=== PATIENT | female | born 1995 | race Caucasian/White ===

== ENCOUNTER 2016-05-14 11:08 | Emergency (ER) | payer MEDICAID ==
[~2016-05-14] VITALS: Ht 160 cm; Wt 69.0 kg
[2016-05-14 11:10] VITALS: Ht 160 cm; Wt 69.0 kg
[2016-05-14] MEDS ORDERED: SOD CHLORIDE 0.9% 1,000 ML IV STA (11:33)
[2016-05-14] MEDS ORDERED: ONDANSETRON 4 MG INJ IV STA ×2 (11:33→12:41)
[2016-05-14] MEDS ORDERED: LIDOCAINE/MYLANTA 40 ML BTL PO STA (11:33)
[2016-05-14] MEDS ORDERED: FAMOTIDINE 20 MG TAB PO STA (11:33)
--- NOTE | 2016-05-14 12:04 | ERD ---
ER Documentation Chief Complaint Date/Time DATE: 05/14/16 TIME: 12:01 Chief Complaint Complains of epigastric pain and vomiting x 3 days HPI Patient is a 21-year-old female here with mother who presents to the ED with vomiting 2 days. She states that she had [employer] on and innout on Sunday and developed symptoms afterwards. She complains of non-bloody slightly green and yellow emesis. She states that her pain is in the epigastric and right upper quadrant region. She states that she has been able to tolerate soup and potatoes however she has had multiple episodes of vomiting in the last 2 days. She also has had episodes of watery diarrhea x 2 days, non bloody, non black, non tarry. Denies fever or chills. Denies headache, dizziness, neck pain or stiffness. Denies leg pain or swelling. Denies cough, shortness of breath or difficulty breathing. Denies pelvic pain. Denies dysuria, urgency, frequency or hematuria. ROS All systems reviewed and are negative except as per history of present illness. Medications Home Meds Active Scripts Electrolyte,Oral (Pedialyte) 1,000 Ml Solution, 100 ML PO Q6 Y for VOMITTING for 14 Days, ML Prov:RUPERT LEWIS PA-C 05/14/16 Ondansetron Hcl* (Zofran*) 4 Mg Tablet, 4 MG PO Q6H for NAUSEA AND/OR VOMITING, #30 TAB Prov:RUPERT LEWIS PA-C 05/14/16 Allergies Allergies: Coded Allergies: No Known Allergy (Unverified , 05/14/16) PMhx/Soc Medical and Surgical Hx: pt denies Medical Hx, pt denies Surgical Hx History of Surgery: No Anesthesia Reaction: No Hx Neurological Disorder: No Hx Respiratory Disorders: No Hx Cardiac Disorders: No Hx Psychiatric Problems: No Hx Miscellaneous Medical Probl: No Hx Alcohol Use: No Hx Substance Use: No Hx Tobacco Use: No Smoking Status: Never smoker Physical Exam Vitals Vital Signs Date Time Temp Pulse Resp B/P Pulse Ox O2 Delivery O2 Flow Rate FiO2 05/14/16 11:10 98.9 111 20 121/70 98 Physical Exam GENERAL: Well-developed, well-nourished female. Appears in no acute distress. HEAD: Normocephalic, atraumatic. EYES: Pupils are equally reactive bilaterally. EOMs grossly intact. No conjunctival erythema. ENT: Moist mucous membranes. No uvula deviation. No kissing tonsils. No exudates. NECK: Supple. No lymphadenopathy or thyromegaly. No meningismus. negative kernig. negative brudinski. LUNG: Clear to auscultation bilaterally. No rhonchi, wheezing, rales or coarse breath sounds. HEART: Regular rate and rhythm. No murmurs, rubs or gallops. ABDOMEN: No scars, ecchymosis or rashes noted. Soft, nontender, and nondistended. Positive bowel sounds in all four quadrants. No rebound tenderness , no guarding. (-) McBurneys point tenderness. No CVA tenderness. Tenderness in the right upper quadrant and epigastric. BACK: No midline tenderness. Extremities: Equal pulses bilaterally. No peripheral clubbing, cyanosis or edema. No unilateral leg swelling. NEUROLOGIC: Alert and oriented. Moving all four extremities. 5/5 strength in all extremities. Normal speech. Steady gait. SKIN: Normal color. Warm and dry. No rashes or lesions. Capillary refill < 2 seconds Result Diagram: 05/14/16 1144 05/14/16 1144 Results 24 hrs Laboratory Tests Test 05/14/16 11:44 White Blood Count 5.210^3/ul Red Blood Count 4.8410^6/ul Hemoglobin 14.5g/dl Hematocrit 44.6% Mean Corpuscular Volume 92.1fl Mean Corpuscular Hemoglobin 30.0pg Mean Corpuscular Hemoglobin Concent 32.5g/dl Red Cell Distribution Width 12.9% Platelet Count 90258^3/UL Mean Platelet Volume 10.9fl Neutrophils % 80.6% Lymphocytes % 11.6% Monocytes % 6.8% Eosinophils % 0.4% Basophils % 0.4% Nucleated Red Blood Cells % 0.0/100WBC Neutrophils # 4.210^3/ul Lymphocytes # 0.610^3/ul Monocytes # 0.410^3/ul Eosinophils # 0.010^3/ul Basophils # 0.010^3/ul Nucleated Red Blood Cells # 0.010^3/ul Urine Color LT. YELLOW Urine Clarity SLIGHTLY CLOUDY Urine pH 6.0 Urine Specific [place] 1.020 Urine Ketones TRACE Urine Nitrite NEGATIVE Urine Bilirubin NEGATIVE Urine Urobilinogen 0.2 E.U./dL Urine Leukocyte Esterase TRACE Urine Microscopic RBC NONE SEEN/HPF Urine Microscopic WBC 0-2/HPF Urine Squamous Epithelial Cells MODERATE Urine Mucus MODERATE Urine Hemoglobin NEGATIVE Urine Glucose NEGATIVE% Urine Total Protein TRACE Sodium Level 141mmol/L Potassium Level 3.8mmol/L Chloride Level 103mmol/L Carbon Dioxide Level 27mmol/L Anion Gap 15 Blood Urea Nitrogen 11mg/dl Creatinine 0.59mg/dl Glucose Level 105mg/dl Calcium Level 9.3mg/dl Total Bilirubin 0.2mg/dl Direct Bilirubin 0.00mg/dl Indirect Bilirubin 0.2mg/dl Aspartate Amino Transf (AST/SGOT) 20IU/L Alanine Aminotransferase (ALT/SGPT) 21IU/L Alkaline Phosphatase 62IU/L Total Protein 7.0g/dl Albumin 4.3g/dl Globulin 2.70g/dl Albumin/Globulin Ratio 1.59 Lipase 44U/L Current Medications Medications (Trade) Dose Ordered Sig/Joshua Route PRN Reason Start Time Stop Time Status Last Admin Dose Admin Sodium Chloride (NS) 1,000 ml @ 1,000 mls/hr Q1H STAT IV 05/14/16 11:33 05/14/16 12:32 DC 05/14/16 11:51 Ondansetron HCl (Zofran Inj) 4 mg ONCE STAT IV 05/14/16 11:33 05/14/16 11:36 DC 05/14/16 11:51 Famotidine (Pepcid) 20 mg ONCE STAT PO 05/14/16 11:33 05/14/16 11:36 DC 05/14/16 11:51 Miscellaneous Medication (Gi Cocktail (2)) 40 ml ONCE STAT PO 05/14/16 11:33 05/14/16 11:36 DC 05/14/16 11:51 Ondansetron HCl 4 mg 4 mg ONCE STAT IV 05/14/16 12:41 05/14/16 12:46 DC 05/14/16 12:48 Sodium Chloride (NS) 1,000 ml @ 1,000 mls/hr Q1H ONCE IV 05/14/16 13:00 05/14/16 13:59 05/14/16 12:48 Ketorolac Tromethamine (Toradol) 15 mg ONCE STAT IV 05/14/16 13:22 05/14/16 13:23 DC Procedures/MDM ER COURSE: I kept the patient and/or family informed of laboratory and diagnostic imaging results throughout the emergency room course. EKG, MONITORS, & DIAGNOSTIC IMAGING: [place] [id number] Radiology Main Line: [phone] DIAGNOSTIC IMAGING REPORT Patient: LISY ISERRA : 1995 Age: 21 Sex: F MR #: [id number] DOS: 05/14/16 1133 Ordering MD: RUPERT LEWIS PA-C Location: [facility] Room/Bed: PROCEDURE: US Abdomen. CLINICAL INDICATION: abdominal pain TECHNIQUE: Multiple real-time images were acquired of the patient's right upper quadrant abdomen and retroperitoneum utilizing a high resolution transducer. COMPARISON: None FINDINGS: The liver demonstrates normal echogenicity. The liver is normal in size and no focal solid lesions are seen. The liver measures 16.9 cm in length. The portal vein is patent with normal direction of flow. No intrahepatic biliary dilatation is seen. No gallstones are identified within the gallbladder. There is no pericholecystic fluid or gallbladder wall thickening. The common bile duct measures 4 mm in maximal dimension. The visualized portions of the pancreas are unremarkable. The tail of the pancreas is not seen. No free fluid is identified. The right kidney is normal in size, and demonstrate normal echogenicity and cortical thickness. The right kidney measures 11.2 cm in long dimension. There is no evidence of hydronephrosis. There are no kidney stones. Limited sonographic images of the left upper quadrant are unremarkable. RPTAT: AA IMPRESSION: Unremarkable right upper quadrant abdominal ultrasound. .Peter Monsivais MD, Date Time Electronically viewed and signed by .Peter Monsivais MD, on 05/14/2016 12: 33 .S/ CC: RUPERT LEWIS PA-C MEDICATIONS: IV fluids, Zofran, GI cocktail plus Pepcid Zofran, Toradol 15 mg i.v. Tolerated well and seen improvement in symptoms. LAB INTERPRETATION: CBC showed no evidence of systemic infection or severe anemia. CMP showed no evidence of electrolyte abnormalities, severe acidosis, alkalosis, renal failure , or liver disease. Lipase showed no evidence of acute pancreatitis. UA showed no evidence of leukocytes, nitrites or hematuria. Urine test was negative. MEDICAL DECISION MAKING: This is a 21-year-old female who presents with vomiting and diarrhea 2 days. Vital signs were reviewed. Patient is afebrile. Patient is not hypoxic. Patient does have slight tachycardia which is likely related to her vomiting. Patient has vomiting of unknown etiology, likely viral. Her gallbladder ultrasound is read by radiologist is unremarkable. Her labs are all within normal limits. Low suspicion for ACS, AAA, perforated ulcer, bowel obstruction , cholecystitis, choledocholithiasis, cholangitis, pancreatitis, hepatic abscess , appendicitis, diverticulitis, gastroenteritis, hepatitis, peptic ulcer disease , HELLP syndrome. I reexamined patient after administration of medication patient states she is feeling much better and is ready to go home. DISCHARGE: At this time, patient is stable for discharge and outpatient management with no new complaints during the ER course. Patient was sent home with Pedialyte and Zofran and note for work. Advised patient to follow a BRAT diet.. Patient will be discharged home with instructions to recheck for new or worsening symptoms such as fever, nausea, weakness, LOC and to follow up with primary care in the next 1-2 days. Patient was advised to return to the ER for any new or worsening symptoms. Plan was discussed and patient and/or family understands and agrees. Home instructions were given. Departure Diagnosis: Primary Impression: Vomiting and diarrhea Condition: Stable RUPERT LEWIS PA-C May 14, 2016 12:04
[2016-05-14 12:12] LABS: ADD SCAN DIFF NO
[2016-05-14 12:15] LABS: BASOPHILS % 0.4 % (0.0-2.0); EOSINOPHILS % 0.4 % (0.0-7.0); HEMATOCRIT 44.6 % (37.0-47.0); HEMOGLOBIN 14.5 g/dl (12.0-16.0); LYMPHOCYTES # 0.6 10^3/ul (0.8-2.9); LYMPHOCYTES % 11.6 % (18.0-55.0); MEAN CORPUSCULAR HGB CONC 32.5 g/dl (32.0-37.0); MEAN CORPUSCULAR VOLUME 92.1 fl (72.0-104.0); MEAN PLATELET VOLUME 10.9 fl (7.4-10.4); MONOCYTE # 0.4 10^3/ul (0.3-0.9); MONOCYTES % 6.8 % (0.0-13.0); NEUTROPHIL # 4.2 10^3/ul (1.6-7.5); NEUTROPHILS % 80.6 % (30.0-74.0); PLATELET COUNT 266 10^3/UL (140-415); RED BLOOD COUNT 4.84 10^6/ul (4.20-5.40); RED CELL DISTRIBUTION WIDTH 12.9 % (11.5-14.5); WHITE BLOOD COUNT 5.2 10^3/ul (4.8-10.8)
[2016-05-14 12:16] LABS: ADD UMIC YES; URINE BILIRUBIN (Dip) NEGATIVE (NEGATIVE); URINE BLOOD (Dip) NEGATIVE (NEGATIVE); URINE COLOR LT. YELLOW (YELLOW); URINE GLUCOSE (Dip) NEGATIVE (NEGATIVE); URINE KETONES (Dip) TRACE (NEGATIVE); URINE LEUKOCYTE ESTERASE (Dip) TRACE (NEGATIVE); URINE NITRITE (Dip) NEGATIVE (NEGATIVE); URINE TOTAL PROTEIN (Dip) TRACE (NEGATIVE); URINE UROBILINOGEN (Dip) 0.2 E.U./dL (0.1-1.0)
[2016-05-14 12:23] LABS: ALBUMIN 4.3 g/dl (3.3-4.9)
[2016-05-14 12:24] LABS: POTASSIUM 3.8 mmol/L (3.5-5.1)
[2016-05-14 12:25] LABS: CREATININE 0.59 mg/dl (0.44-1.00)
[2016-05-14 12:26] LABS: ALBUMIN/GLOBULIN RATIO 1.59; BILIRUBIN,INDIRECT 0.2 mg/dl (0-1.1); BILIRUBIN,TOTAL 0.2 mg/dl (0.2-1.3); CALCIUM 9.3 mg/dl (8.4-10.2)
--- NOTE | 2016-05-14 12:34 | RADRPT ---
PROCEDURE: US Abdomen. CLINICAL INDICATION: abdominal pain TECHNIQUE: Multiple real-time images were acquired of the patient's right upper quadrant abdomen a nd retroperitoneum utilizing a high resolution transducer. COMPARISON: None FINDINGS: The liver demonstrates normal echogenicity. The liver is normal in size and no focal solid lesions are seen. The liver measures 16.9 cm in length. The portal vein is patent with normal direction of f low. No intrahepatic biliary dilatation is seen. No gallstones are identified within the gallbladder. There is no pericholecystic fluid or gallbladd er wall thickening. The common bile duct measures 4 mm in maximal dimension. The visualized portions of the pancreas are unremarkable. The tail of the pancreas is not seen. No free fluid is identified. The right kidney is normal in size, and demonstrate normal echogenicity and cortical thickness. The right kidney measures 11.2 cm in long dimension. There is no evidence of hydronephrosis. There are no kidney stones. Limited sonographic images of the left upper quadrant are unremarkable. RPTAT: AA IMPRESSION: Unremarkable right upper quadrant abdominal ultrasound. .Peter Monsivais MD, MD Date Time Electronically viewed and signed by .Peter Monsivais MD, on 05/14/2016 12:33 .S/
[2016-05-14 12:52] LABS: MUCUS,URINE MODERATE; SQUAMOUS EPITHELIAL CELL,UR MODERATE; URINE RBCS NONE SEEN /HPF ([, 0])
[2016-05-14] MEDS ORDERED: ONDA4TAB8 PO (12:59)
[2016-05-14] MEDS ORDERED: SOD CHLORIDE 0.9% 1,000 ML IV ONE (13:00)
[2016-05-14] MEDS ORDERED: ELEC100080 PO (13:00)
[2016-05-14] MEDS ORDERED: KETOROLAC 15 MG INJ IV STA (13:22)
[2016-05-14 13:27] VITALS: BP 93/58; PULSE 62; RESP 16; TEMP 98.6
[2016-05-14] MEDS ORDERED: ONDANSETRON (ODT) 4 MG TAB ODT STA (14:05)
== END 2016-05-14 14:31 | disposition home or self-care (01) ==
LOC: FTE 11:08
DX: R11.10 Vomiting, unspecified (principal); R19.7 Diarrhea, unspecified
CPT/HCPCS: 76705; 80053; 81001; 83690; 85025; J1885; J2405; J7030; Z7610; 36415; 81003; 96374; 96375; 96376

== ENCOUNTER 2016-08-01 18:10 | Emergency (ER) | payer MEDICAID ==
[~2016-08-01] VITALS: Wt 56.0 kg
[~2016-08-01 18:10] MED LIST: ELEC100080 PO; ONDA4TAB8 PO
[2016-08-01] MEDS ORDERED: IBUP-1542 PO (18:23)
[2016-08-01] MEDS ORDERED: AMO500 PO (18:23)
--- NOTE | 2016-08-01 18:27 | ERD ---
ER Documentation Chief Complaint Date/Time DATE: 08/01/16 TIME: 18:[address] x 2 days HPI 21-year-old female presents to emergency department for complaints of sore throat for 2 days. Patient's complaining of sore throat, burning pain, 4/10 scale, more on the left side of the throat. Patient did not take any medication to help with symptoms. Patient denies any stridor. Patient denies shortness of breath. ROS All systems reviewed and are negative except as per history of present illness. Medications Home Meds Active Scripts Ibuprofen* (Motrin*) 600 Mg Tab, 600 MG PO Q6H Y for PAIN AND OR ELEVATED TEMP, #30 TAB Prov:RHETT MONTOYA [employer] 08/01/16 Amoxicillin* (Amoxicillin*) 500 Mg Cap, 500 MG PO TID for 10 Days, CAP Prov:RHETT MONTOYA [employer] 08/01/16 Electrolyte,Oral (Pedialyte) 1,000 Ml Solution, 100 ML PO Q6 Y for VOMITTING for 14 Days, ML Prov:RUPERT LEWIS PA-C 05/14/16 Ondansetron Hcl* (Zofran*) 4 Mg Tablet, 4 MG PO Q6H for NAUSEA AND/OR VOMITING, #30 TAB Prov:RUPERT LEWIS PA-C 05/14/16 Allergies Allergies: Coded Allergies: No Known Allergy (Unverified , 05/14/16) PMhx/Soc Medical and Surgical Hx: pt denies Medical Hx, pt denies Surgical Hx History of Surgery: No Anesthesia Reaction: No Hx Neurological Disorder: No Hx Respiratory Disorders: No Hx Cardiac Disorders: No Hx Psychiatric Problems: No Hx Miscellaneous Medical Probl: No Hx Alcohol Use: No Hx Substance Use: No Hx Tobacco Use: No FmHx Family History: No coronary disease, No diabetes, No other Physical Exam Vitals Vital Signs Date Time Temp Pulse Resp B/P Pulse Ox O2 Delivery O2 Flow Rate FiO2 08/01/16 18:15 98.1 66 18 124/61 99 Physical Exam GENERAL: The patient is well developed and appropriate for usual state of health, in no apparent distress. HEENT: Atraumatic. Ears: Normal tympanic membrane, no erythema or bulging. No ear canal swelling. No ear discharge. Nose: normal nasal turbinates, no erythema or swelling. Normal nasal discharge. Throat: oropharynx erythematous with left tonsillar swelling and tonsillar exudate noted. No lymphadenopathy. CHEST: Clear to auscultation bilaterally. There are no rales, wheezes or rhonchi. HEART: Regular rate and rhythm. No murmurs, clicks, rubs or gallops. No S3 or S4. ABDOMEN: Soft, nontender and nondistended. Good bowel sounds. No rebound or guarding. No gross peritonitis. No gross organomegaly or masses. No Ryder sign or McBurney point tenderness. BACK: No midline or flank tenderness. EXTREMITIES: Equal pulses bilaterally. There is no peripheral clubbing, cyanosis or edema. No focal swelling or erythema. Full range of motion. Grossly neurovascularly intact. NEURO: Alert and oriented. Cranial nerves 2-12 intact. Motor strength in all 4 extremities with 5/5 strength. Sensation grossly intact. Normal speech and gait. SKIN: There is no apparent rash or petechia. The skin is warm and dry. HEMATOLOGIC AND LYMPHATIC: There is no evidence of excessive bruising or lymphedema. No gross cervical, axillary, or inguinal lymphadenopathy. Procedures/MDM Medical decision making: Patient symptoms is likely consistent with acute bacterial pharyngitis, most likely strep throat. Low suspicion for peritonsillar abscess, mononucleosis, no symptoms of epiglottitis, laryngitis. No oral airway obstruction noted. No symptoms of sepsis at this time. Patient appears well and is hemodynamically stable. Patient was given for amoxicillin, ibuprofen, , is advised to follow-up with primary care doctor in 2-3 days for reevaluation of symptoms. Patient is advised to do salt water gargles. Patient is advised to return to emergency department for worsening symptoms. Disposition: Home. Stable. Departure Diagnosis: Primary Impression: Acute bacterial pharyngitis Condition: Stable Patient Instructions: Pharyngitis, Strep (Presumed) RHETT MONTOYA NP Aug 01, 2016 18:27
== END 2016-08-01 18:25 | disposition home or self-care (01) ==
LOC: E/R 18:10
DX: J02.9 Acute pharyngitis, unspecified (principal)
CPT/HCPCS: 99283

== ENCOUNTER 2016-08-30 15:05 | Emergency (ER) | payer MEDICAID ==
[~2016-08-30] VITALS: Ht 160 cm; Wt 71.0 kg
[~2016-08-30 15:05] MED LIST changes: +AMO500 PO; +IBUP-1542 PO
[2016-08-30 15:07] VITALS: Ht 160 cm; Wt 71.0 kg
[2016-08-30] MEDS ORDERED: KETOROLAC 30 MG INJ IM STA (15:22)
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
--- NOTE | 2016-08-30 16:11 | RADRPT ---
PROCEDURE: XR Foot. CLINICAL INDICATION: Right foot pain, crush injury TECHNIQUE: 3 views of the right foot are available for review. COMPARISON: None available FINDINGS: There is no acute fracture. Alignment is normal. Joint spaces are preserved. Soft tissues are grossly unremarkable. IMPRESSION: 1. No radiographic evidence of acute osseous abnormality of the right foot. RPTAT: UU .Steven Dorsey MD, MD Date Time Electronically viewed and signed by .Steven Dorsey MD, on 08/30/2016 16:11 .K/
--- NOTE | 2016-08-30 17:23 | RADRPT ---
PROCEDURE: CT angiogram of the right lower extremity with intravenous contrast and with 3-D recons tructions CLINICAL INDICATION: Evaluate for calcaneal fracture TECHNIQUE: CT angiogram of the pelvis and right lower extremity was performed on the multislice CT scanner . The patient was scanned after administration of intravenous contrast. Oral contrast was not administered. 3-D, sagittal and coronal reformatted images were obtained from the axial source images. DLP 223.98 mGycm. CTDI vol 18.01 mGy One or more of the following dose reduction techniques were used: - Automated exposure control. - Adjustment of the mA and/or kV according to patient size. - Use of iterative reconstruction technique. COMPARISON: Plain radiographs of the right foot from 08/30/2016 FINDINGS: The bones of the right foot are intact without evidence of an acute fracture. There is normal osseous mineralization. Joint spaces are intact. The ankle mortise is intact. There is an 8 mm bone island in the calcaneus as well as a 4 mm bone island in the navicular. Soft tissues are unremarkable. RPTAT: AA IMPRESSION: No evidence of acute fracture. Physician Jad Date Time Electronically viewed and signed by Physician Jad on 08/30/2016 17:23 /
[2016-08-30] MEDS ORDERED: IBUPROFEN 600 MG TAB PO STA (17:36)
[2016-08-30] MEDS ORDERED: ACETAMINOPHEN 500 MG TAB PO STA (17:36)
[2016-08-30] MEDS ORDERED: IBUP-1542 PO (17:39)
== END 2016-08-30 17:55 | disposition home or self-care (01) ==
LOC: FTE 15:05
DX: S97.81XA Crushing injury of right foot, initial encounter (principal); V03.10XA Pedestrian on foot injured in collision with car, pick-up truck or van in traffic accident, initial encounter
CPT/HCPCS: 73630; 73700; J1885; 96372

== ENCOUNTER 2017-06-20 09:32 | Emergency (ER) | END 2017-06-20 10:05 | disposition home or self-care (01) ==